=== PATIENT | female | born 1965 | race Caucasian/White ===

== ENCOUNTER 2020-12-10 21:51 | Emergency (ER) | payer OTHER ==
[2020-12-11] MEDS ORDERED: Lidocaine 1% PF 5 ML VIAL ONE (01:05)
[2020-12-11] MEDS ORDERED: Bacitracin 1 PK ONE (01:56)
== END 2020-12-11 02:02 | disposition home or self-care (01) ==
LOC: CSHERS 21:51
DX: S61.211A Laceration without foreign body of left index finger without damage to nail, initial encounter (principal); W26.8XXA Contact with other sharp object(s), not elsewhere classified, initial encounter
CPT/HCPCS: 12001